=== PATIENT | male | born 1950 | race Caucasian/White ===

== ENCOUNTER 2023-05-06 13:39 | Emergency (ER) | payer MEDICARE ==
[~2023-05-06] VITALS: Ht 177.8 cm; Wt 79.4 kg
[2023-05-06 14:21] VITALS: BP 148/81
[2023-05-06] MEDS ORDERED: EPIPEN0.3 MG/0.3 IM (15:42)
== END 2023-05-06 15:56 | disposition home or self-care (01) ==
LOC: ER 13:39
DX: T63.441A Toxic effect of venom of bees, accidental (unintentional), initial encounter (principal); R20.2 Paresthesia of skin; X58.XXXA Exposure to other specified factors, initial encounter; Z88.0 Allergy status to penicillin
CPT/HCPCS: 96374; 96375; 99283-25; J2930